=== PATIENT | female | born 1945 | race Caucasian/White ===

== ENCOUNTER 2023-09-29 14:16 | Outpatient (RCR) | payer MEDICARE, OTHER, SELFPAY | END 2023-09-29 23:59 | disposition home or self-care (01) | LOC: ROT 14:16 | PROVIDERS: ATTENDING PHYSICIAN Psychiatry & Neurology Neurology; FAMILY PHYSICIAN Family Medicine | DX: G30.9 Alzheimer's disease, unspecified (principal); F02.80 Dementia in other diseases classified elsewhere, unspecified severity, without behavioral disturbance, psychotic disturbance, mood disturbance, and anxiety; R47.89 Other speech disturbances; Z73.6 Limitation of activities due to disability; R47.01 Aphasia | CPT/HCPCS: 92507; 92523; 97167; 97535 ==

== ENCOUNTER 2023-10-29 12:52 | Outpatient (RCR) | payer MEDICARE, OTHER, SELFPAY | END 2023-10-29 23:59 | disposition home or self-care (01) | LOC: ROT 12:52 | PROVIDERS: ATTENDING PHYSICIAN Psychiatry & Neurology Neurology; FAMILY PHYSICIAN Family Medicine | DX: G30.9 Alzheimer's disease, unspecified (principal); F02.80 Dementia in other diseases classified elsewhere, unspecified severity, without behavioral disturbance, psychotic disturbance, mood disturbance, and anxiety; R47.89 Other speech disturbances; Z73.6 Limitation of activities due to disability | CPT/HCPCS: 92507; 97535 ==

== ENCOUNTER → 2023-10-31 12:06 | Outpatient (REF) | payer MEDICARE, OTHER, SELFPAY | LOC: PAVMRI 12:06 | PROVIDERS: ATTENDING PHYSICIAN Psychiatry & Neurology Neurology; FAMILY PHYSICIAN Family Medicine | DX: G30.9 Alzheimer's disease, unspecified (principal) | CPT/HCPCS: 70553; A9575 ==

== ENCOUNTER 2023-11-26 14:33 | Outpatient (RCR) | payer MEDICARE, OTHER, SELFPAY | END 2023-11-26 23:59 | disposition home or self-care (01) | LOC: ROT 14:33 | PROVIDERS: ATTENDING PHYSICIAN Psychiatry & Neurology Neurology; FAMILY PHYSICIAN Family Medicine | DX: G30.9 Alzheimer's disease, unspecified (principal); F02.80 Dementia in other diseases classified elsewhere, unspecified severity, without behavioral disturbance, psychotic disturbance, mood disturbance, and anxiety; R47.89 Other speech disturbances; Z73.6 Limitation of activities due to disability; R47.01 Aphasia | CPT/HCPCS: 92507; 97530; 97535 ==

== ENCOUNTER 2024-01-02 12:11 | Outpatient (RCR) | payer MEDICARE, OTHER, SELFPAY | END 2024-01-02 23:59 | disposition home or self-care (01) | LOC: ROT 12:11 | PROVIDERS: ATTENDING PHYSICIAN Psychiatry & Neurology Neurology; FAMILY PHYSICIAN Family Medicine | DX: G30.9 Alzheimer's disease, unspecified (principal); F02.80 Dementia in other diseases classified elsewhere, unspecified severity, without behavioral disturbance, psychotic disturbance, mood disturbance, and anxiety; Z73.6 Limitation of activities due to disability | CPT/HCPCS: 92507; 97530; 97535 ==

== ENCOUNTER 2024-01-28 12:51 | Outpatient (RCR) | payer MEDICARE, OTHER, SELFPAY | END 2024-01-28 23:59 | disposition home or self-care (01) | LOC: ROT 12:51 | PROVIDERS: ATTENDING PHYSICIAN Psychiatry & Neurology Neurology; FAMILY PHYSICIAN Family Medicine | DX: G30.9 Alzheimer's disease, unspecified (principal); F02.80 Dementia in other diseases classified elsewhere, unspecified severity, without behavioral disturbance, psychotic disturbance, mood disturbance, and anxiety; R47.89 Other speech disturbances; R47.01 Aphasia; Z73.6 Limitation of activities due to disability | CPT/HCPCS: 92507 ==

== ENCOUNTER 2024-03-03 12:57 | Outpatient (RCR) | payer MEDICARE, OTHER, SELFPAY | END 2024-03-03 23:59 | disposition home or self-care (01) | LOC: ROT 12:57 | PROVIDERS: ATTENDING PHYSICIAN Psychiatry & Neurology Neurology; FAMILY PHYSICIAN Family Medicine | DX: G30.9 Alzheimer's disease, unspecified (principal); F02.80 Dementia in other diseases classified elsewhere, unspecified severity, without behavioral disturbance, psychotic disturbance, mood disturbance, and anxiety; R47.89 Other speech disturbances; R47.01 Aphasia | CPT/HCPCS: 92507 ==

== ENCOUNTER 2024-03-23 13:33 | Outpatient (RCR) | payer MEDICARE, OTHER, SELFPAY | END 2024-03-23 23:59 | disposition home or self-care (01) | LOC: ROT 13:33 | PROVIDERS: ATTENDING PHYSICIAN Psychiatry & Neurology Neurology; FAMILY PHYSICIAN Family Medicine | DX: G30.9 Alzheimer's disease, unspecified (principal); F02.80 Dementia in other diseases classified elsewhere, unspecified severity, without behavioral disturbance, psychotic disturbance, mood disturbance, and anxiety; R47.89 Other speech disturbances; R47.01 Aphasia | CPT/HCPCS: 92507 ==

== ENCOUNTER 2024-04-27 13:44 | Outpatient (RCR) | payer MEDICARE, OTHER, SELFPAY | END 2024-04-27 23:59 | disposition home or self-care (01) | LOC: ROT 13:44 | PROVIDERS: ATTENDING PHYSICIAN Psychiatry & Neurology Neurology; FAMILY PHYSICIAN Family Medicine | DX: G30.9 Alzheimer's disease, unspecified (principal); F02.80 Dementia in other diseases classified elsewhere, unspecified severity, without behavioral disturbance, psychotic disturbance, mood disturbance, and anxiety; R47.89 Other speech disturbances; R47.01 Aphasia; Z73.6 Limitation of activities due to disability | CPT/HCPCS: 92507 ==

== ENCOUNTER 2024-05-25 12:55 | Outpatient (RCR) | payer MEDICARE, OTHER, SELFPAY | END 2024-05-25 23:59 | disposition home or self-care (01) | LOC: ROT 12:55 | PROVIDERS: ATTENDING PHYSICIAN Psychiatry & Neurology Neurology; FAMILY PHYSICIAN Family Medicine | DX: G30.9 Alzheimer's disease, unspecified (principal); F02.80 Dementia in other diseases classified elsewhere, unspecified severity, without behavioral disturbance, psychotic disturbance, mood disturbance, and anxiety; R47.89 Other speech disturbances; R47.01 Aphasia | CPT/HCPCS: 92507 ==

== ENCOUNTER 2024-06-24 14:23 | Outpatient (RCR) | payer MEDICARE, OTHER, SELFPAY | END 2024-06-24 23:59 | disposition home or self-care (01) | LOC: ROT 14:23 | PROVIDERS: Psychiatry & Neurology Neurology; ATTENDING PHYSICIAN Psychiatry & Neurology Neurology; FAMILY PHYSICIAN Family Medicine | DX: G30.9 Alzheimer's disease, unspecified (principal); F02.80 Dementia in other diseases classified elsewhere, unspecified severity, without behavioral disturbance, psychotic disturbance, mood disturbance, and anxiety; R47.89 Other speech disturbances; Z73.6 Limitation of activities due to disability | CPT/HCPCS: 92507 ==

== ENCOUNTER 2024-07-20 13:41 | Outpatient (RCR) | payer MEDICARE, OTHER, SELFPAY | END 2024-07-20 23:59 | disposition home or self-care (01) | LOC: ROT 13:41 | PROVIDERS: ATTENDING PHYSICIAN Psychiatry & Neurology Neurology; FAMILY PHYSICIAN Family Medicine | DX: G30.9 Alzheimer's disease, unspecified (principal); F02.80 Dementia in other diseases classified elsewhere, unspecified severity, without behavioral disturbance, psychotic disturbance, mood disturbance, and anxiety; R47.89 Other speech disturbances; Z73.6 Limitation of activities due to disability; R47.01 Aphasia | CPT/HCPCS: 92507 ==

== ENCOUNTER 2024-08-11 15:24 | Outpatient (RCR) | payer MEDICARE, OTHER, SELFPAY | END 2024-08-11 23:59 | disposition home or self-care (01) | LOC: ROT 15:24 | PROVIDERS: ATTENDING PHYSICIAN Psychiatry & Neurology Neurology; FAMILY PHYSICIAN Family Medicine | DX: G30.9 Alzheimer's disease, unspecified (principal); F02.80 Dementia in other diseases classified elsewhere, unspecified severity, without behavioral disturbance, psychotic disturbance, mood disturbance, and anxiety; R47.89 Other speech disturbances; Z73.6 Limitation of activities due to disability; R47.01 Aphasia | CPT/HCPCS: 92507 ==

== ENCOUNTER 2024-09-29 13:34 | Outpatient (RCR) | payer MEDICARE, OTHER, SELFPAY | END 2024-09-29 23:59 | disposition home or self-care (01) | LOC: ROT 13:34 | PROVIDERS: ATTENDING PHYSICIAN Psychiatry & Neurology Neurology; FAMILY PHYSICIAN Family Medicine | DX: G30.9 Alzheimer's disease, unspecified (principal); F02.80 Dementia in other diseases classified elsewhere, unspecified severity, without behavioral disturbance, psychotic disturbance, mood disturbance, and anxiety; R47.89 Other speech disturbances; R47.01 Aphasia; Z73.6 Limitation of activities due to disability | CPT/HCPCS: 92507 ==

== ENCOUNTER 2025-05-29 08:26 | Emergency (ER) | payer MEDICARE, OTHER, SELFPAY ==
[2025-05-29 08:34] VITALS: BP 176/86
[2025-05-29 08:40] VITALS: BP 154/80
--- NOTE | 2025-05-29 09:10 | ED.GENMED ---
History of Present Illness
General
Chief Complaint: Hyper/Hypo Thermia Problem
Source: spouse and ambulance crew
Exam Limitations: dementia
Time Seen by Provider: 05/29/25 08:54
History of Present Illness
History of Present Illness:
79yoF with a history of Alzheimer's dementia, hypertension, hyperlipidemia, hypothyroidism presenting via EMS after she wandered from the house this morning. heard the front door slam this morning around 4 AM. He got out of bed around 4:15
and noticed that she was missing. Police were able to locate her several hours later in a truck about [address] from her residence. She was hypothermic on EMS arrival with a temperature of 96 and was brought to the ED for evaluation. Patient has
baseline aphasia and states she is at baseline mental status.
Past History
Past History
ED Past Medical History: Other (Diverticulitis, hypertension, hyperlipidemia, mycosis fungoides)
Social History
Tobacco: Non-smoker
Alcohol: Occasional
Personal:
Living: with family
Family History
Family History: CAD and Other (Stroke)
Phy Exam
General Physical Exam
General Presentation: no apparent distress
General Skin: warm and dry
General Habitus: elderly
General Mental: alert
ENT Exam
ENT Exam: normocephalic and other (No external signs of head trauma)
Eye Exam
Eye Exam: PERRL and conjunctiva normal
Cardiovascular Exam
Cardiovascular Exam: regular rate/rhythm
Pulmonary Exam
Pulmonary Exam: lungs clear, no respiratory distress, no rales, no crackles, no rhonchi and no wheezing
Gastrointestinal Exam
Gastrointestinal Exam: non tender, soft and non distended
Neurological Exam
Neurological Exam: alert and other (Baseline aphasia)
[place]ot Coma Scale
Eye Opening: Spontaneous
Verbal Response: Confused
Motor Response: Obeys Commands
GCS Total Score: 14
Skin Exam
Skin Exam: normal color and warm/dry
Course
Orders/Labs/Results
Orders:
Orders
05/29/25 09:10
Electrocardiogram (*1) Urgent
Reason for Study: QTc Monitoring
EKG- Treatment ONCE
05/29/25 09:35
Complete Blood Count/With Diff Urgent
Comprehensive Metabolic Panel Urgent
Magnesium Urgent
Comment: ADD ON
TSH Reflex To Free T4 Urgent
Total CK [Creatine Phosphokinase] Urgent
05/29/25 09:43
Add On- LAB Urgent
Tests Added?: magnesium
05/29/25 10:15
Electrocardiogram (*1) Urgent
Reason for Study: QTc Monitoring
EKG- Treatment ONCE
Abnormal Lab Results
05/29/25
09:35
RBC 4.07 L 10^6/uL
(4.20-5.40)
Hct 36.5 L %
(37.0-47.0)
Abs Immat Gran (auto) 0.1 H 10^3/uL
(0-0.05)
Absolute Neuts (auto) 8.3 H 10^3/uL
(1.4-6.5)
Absolute Lymphs (auto) 0.9 L 10^3/uL
(1.2-3.4)
Immature Gran % 0.8 H %
(0-0.5)
Neutrophils % 83.8 H %
(42.2-75.2)
Lymphocytes % 9.5 L %
(20.5-51.1)
Sodium 133 L mmol/L
(135-145)
05/29/25 09:35
05/29/25 09:35
Vital Signs
Initial and Last Documented VS:
Initial Vital Signs
Temp Pulse Resp BP Pulse Ox
96 F L 59 16 176/86 99
05/29/25 08:34 05/29/25 08:34 05/29/25 08:34 05/29/25 08:34 05/29/25 08:34
Last Documented Vital Signs
Temp Pulse Resp BP Pulse Ox
98.2 F 86 16 154/80 98
05/29/25 10:42 05/29/25 08:45 05/29/25 08:45 05/29/25 08:40 05/29/25 09:12
MDM/Problems Addressed
Differential Diagnosis Includes:
79yoF here after wandering from the home this morning. Hx of Alzheimer's. Was missing for a few hours and police found her up the [address] in a neighbor's vehicle. Rectal temp 96 on arrival. She is awake and alert. Baseline aphasia but states
she is at her baseline. No external signs of trauma noted on exam. Differential diagnosis includes: hypothermia due to environmental factors, infectious process, dementia with behavioral disturbance, dehydration
Initial ED plan: Check CBC, CMP, CK, TSH, EKG, and UA. Warm blankets applied. Will monitor and recheck temperature.
*Pulse Oximetry
SaO2: 98
Oxygen Mode of Delivery: Room air
Patient hypoxic: no
*EKG
Interpreted by ED Provider?: Yes
EKG Intrepretation Date: 05/29/25
Heart Rate: 78
Rate: normal
Rhythm: sinus
[place]: normal axis
Interval: long QT (533)
QRS Pattern: normal QRS
Ischemia: no ischemia
*Critical Care Note
Total Time (30-74mins, 75-104mins- exclusive of procedures): Not Applicable
Update Note
Update Note:
Labs unremarkable including normal renal function, glucose, CK, and TSH. Initial EKG showed a prolonged QT of 533. This was rechecked about 1 hour later and QTc improved to 469. Magnesium added which is normal. Repeat temperature 98.2.
would like to take patient home which is reasonable. Offered case management consult for outpatient resources/placement which declines. He was advised to f/u with PCP and palliative care team. ED return precautions reviewed and patient
discharged in stable condition.
ED Attending Note
-
Portions of this chart may have been created with voice recognition software.� Occasional wrong word or��sound alike� substitutions may have occurred due to the inherent limitations of voice recognition software.
Discharge Plan
Departure
Patient Disposition: Home (Routine Discharge)
Date of Disposition: 05/29/25
Time of Disposition: 11:19
Patient with high blood pressure during this ER visit?: Yes
Discharge Problem:
Hypothermia due to cold environment
Instructions: Hypothermia
Prescriptions:
No Action
Acid Piercer Operator
1 tab PO DAILY
lisinopril [Prinivil] 40 MG tablet
40 mg PO DAILY
progesterone micronized [Prometrium] 100 MG capsule
100 mg PO Q48H
Estadiol
0.5 mg PO Q48H
levothyroxine 50 MCG tablet
50 mcg PO DAILY
Referrals:
UNKNOWN - PT DOES,NOT KNOW [Family Provider]
Activity Restrictions/Additional Instructions:
Please follow-up with the family doctor and palliative care team. Return to the ER with any new or worsening symptoms.
Interventions
Interventions:
*Risk Screen - Suicide Last Done: 05/29/25 08:34
*General Assessment Last Done: 05/29/25 08:34
*Neglect/Abuse Screening Last Done: 05/29/25 08:34
*ED- Fall Risk Assessment Last Done: 05/29/25 11:42
*ED COVID-19 Vaccine History Last Done: 05/29/25 08:53
*ED Influenza Vaccine History Last Done: 05/29/25 08:53
*Nursing Disposition Last Done: 05/29/25 11:42
ED- Neurological Assessment Last Done: 05/29/25 08:53
ED-Skin Assessment Last Done: 05/29/25 08:53
Discharge Date and Time
Discharge Date/Time: 05/29/25 11:43
Print Language: NICARAG[place]
[2025-05-29 09:47] LABS: Hematocrit 36.5 % (37.0-47.0); Hemoglobin 12.6 g/dL (12.0-16.0); Mean Corp Hgb Conc. 34.5 g/dL (33.0-37.0); Mean Corpuscular Volume 89.7 fL (81.0-99.0); Nucleated Red Blood Cells % 0 %; Platelet Count 253 10^3/uL (130-400); Red Cell Dist. Width 12.8 % (11.5-14.5)
[2025-05-29 10:01] LABS: ALT (SGPT) 17 U/L (0-35); AST (SGOT) 27 U/L (14-36); Albumin 4.2 g/dl (3.5-5.0); Alkaline Phosphatase 70 U/L (38-126); Blood Urea Nitrogen 15 mg/dl (7-17); Calcium 9.0 mg/dl (8.4-10.2); Carbon Dioxide 27 mmol/L (22-30); Chloride 103 mmol/L (98-107); Glucose 91 mg/dl (70-99); Potassium 3.9 mmol/L (3.5-5.1); Sodium 133 mmol/L (135-145); Total Protein 7.0 g/dl (6.3-8.2); eGFR > 60.00
[2025-05-29 10:07] LABS: Magnesium 1.9 mg/dl (1.6-2.3)
== END 2025-05-29 11:43 | disposition home or self-care (01) ==
LOC: EMR 08:26
PROVIDERS: Physician Assistant; EMERGENCY PHYSICIAN Emergency Medicine
DX: T68.XXXA Hypothermia, initial encounter (principal); X31.XXXA Exposure to excessive natural cold, initial encounter; G30.9 Alzheimer's disease, unspecified; F02.80 Dementia in other diseases classified elsewhere, unspecified severity, without behavioral disturbance, psychotic disturbance, mood disturbance, and anxiety; I10 Essential (primary) hypertension; E03.9 Hypothyroidism, unspecified; E78.5 Hyperlipidemia, unspecified; K57.92 Diverticulitis of intestine, part unspecified, without perforation or abscess without bleeding; R47.01 Aphasia; Z85.72 Personal history of non-Hodgkin lymphomas; Z88.0 Allergy status to penicillin; Z91.040 Latex allergy status
CPT/HCPCS: 99283; 80053; 82550; 83735; 84443; 85025; 93005

== ENCOUNTER → 2025-07-20 12:58 | Outpatient (REF) | payer MEDICARE, OTHER, SELFPAY | LOC: RAD 12:58 | PROVIDERS: ATTENDING PHYSICIAN Family Medicine | DX: M81.0 Age-related osteoporosis without current pathological fracture (principal) | CPT/HCPCS: 77080 ==